=== PATIENT | female | born 1975 | race Hispanic/Latino ===

== ENCOUNTER 2019-01-12 09:42 | Emergency (ER) | payer OTHER ==
[~2019-01-12] VITALS: Ht 162.6 cm; Wt 75.7 kg
--- OUTSIDE RECORDS SUMMARY | 2019-01-12 09:44 | XMS REPORT | Continuity of Care Document ---
Author Author [facility] Interface Address Unknown Phone Unavailable Problems Problem Status Onset Date Classification Date Reported Comments Source Nausea 01/09/2018 Diagnosis 01/09/2018 [facility] Migraine 01/09/2018 Diagnosis 01/09/2018 [facility] Body mass index 25-29 - overweight 12/09/2017 Diagnosis 12/09/2017 [facility] Viral upper respiratory tract infection 12/09/2017 Diagnosis 12/09/2017 [facility] Pain in throat 12/09/2017 Diagnosis 12/09/2017 [facility] Influenza-like symptoms 12/09/2017 Diagnosis 12/09/2017 [facility] Body Mass Index 25-29 - Overweight 12/09/2017 Problem 01/09/2018 [facility] Pain in Throat 12/09/2017 Problem 01/09/2018 [facility] Viral Upper Respiratory Tract Infection 12/09/2017 Problem 01/09/2018 [facility] Influenza-like Symptoms 12/09/2017 Problem 01/09/2018 [facility] Acute sinusitis 12/03/2016 Diagnosis 12/03/2016 [facility] Feeling feverish 12/03/2016 Diagnosis 12/03/2016 [facility] Acute urinary tract infection 02/13/2016 Diagnosis 02/13/2016 [facility] Influenza Due to Influenza a Virus Problem 12/03/2016 [facility] Acute Urinary Tract Infection Problem 12/03/2016 [facility] Medications Medication Details Route Status Patient Instructions Ordering Provider Order Date Source Doxycycline Monohydrate 100 MG Oral Capsule doxycycline monohydrate 100 mg capsule Active [facility] Acetaminophen 325 MG / Hydrocodone Bitartrate 7.5 MG Oral Tablet hydrocodone 7.5 mg-acetaminophen 325 mg tablet Active [facility] Ibuprofen 800 MG Oral Tablet ibuprofen 800 mg tablet Take 1 tablet 3 times a day by oral route for 5 days. Active [facility] Lidocaine Hydrochloride 20 MG/ML Mucous Membrane Topical Solution Lidocaine Viscous 2 % mucosal solution Take 10 mL every 3 hours by oral route as needed. Active [facility] methylprednisolone 4 mg tablets in a dose pack methylprednisolone 4 mg tablets in a dose pack Take PO as directed Active [facility] Promethazine Hydrochloride 25 MG Oral Tablet promethazine 25 mg tablet Active [facility] Ondansetron 8 MG Disintegrating Oral Tablet [Zofran] Zofran ODT [address] 1 tablet every 8 hours by translingual route for 3 days. Active [facility] Medrol (Jad) 4 mg tablets in a dose pack Medrol (Jad) 4 mg tablets in a dose pack Take PO as directed Active [facility] Sulfamethoxazole 800 MG / Trimethoprim 160 MG Oral Tablet [Bactrim] Bactrim DS 800 mg-160 mg tablet Take 1 tablet(s) every 12 hours by oral route as directed for 5 days. Active [facility] Phenazopyridine hydrochloride 200 MG Oral Tablet phenazopyridine 200 mg tablet Take 1 tablet(s) 3 times a day by oral route as needed for urinary pain for 2 days. Active [facility] Amoxicillin 875 MG / Clavulanate 125 MG Oral Tablet [Augmentin] Augmentin 875 mg-125 mg tablet Take 1 tablet every 12 hours by oral route with meals for 7 days. Active [facility] benzonatate 200 MG Oral Capsule benzonatate 200 mg capsule Take 1 capsule 3 times a day by oral route as needed for cough. Active [facility] Chlorpromazine hydrochloride 25 MG Oral Tablet chlorpromazine 25 mg tablet Active [facility] Prednisone 20 MG Oral Tablet prednisone 20 mg tablet Take 2 tablets every day by oral route for 3 days. Active [facility] Allergies, Adverse Reactions, Alerts Substance Category Reaction Severity Reaction type Status Date Reported Comments Source Immunizations Immunization Date Given Site Status Last Updated Comments Source Tdap 08/22/2009 completed [facility] Results Order Name Results Value Reference Range Date Interpretation Comments Source RESULT negative 12/09/2017 [facility] SWAB LOCATION Left and Right tonsillar pillars 12/09/2017 [facility] Influenza A negative 12/09/2017 [facility] Influenza B negative 12/09/2017 [facility] Influenza A negative 12/03/2016 [facility] Influenza B negative 12/03/2016 [facility] RESULT negative 12/03/2016 [facility] SWAB LOCATION Left and Right tonsillar pillars 12/03/2016 [facility] Urinalysis macro (dipstick) panel - Urine COLOR : Gogo 02/13/2016 [facility] Urinalysis macro (dipstick) panel - Urine CLARITY : Cloudy 02/13/2016 [facility] Urinalysis macro (dipstick) panel - Urine LEUKOCYTES : Trace 02/13/2016 [facility] Urinalysis macro (dipstick) panel - Urine NITRITES : Negative 02/13/2016 [facility] Urinalysis macro (dipstick) panel - Urine UROBILINOGEN : Normal 02/13/2016 [facility] Urinalysis macro (dipstick) panel - Urine PROTEIN : Negative 02/13/2016 [facility] Urinalysis macro (dipstick) panel - Urine pH : 5.5 02/13/2016 [facility] Urinalysis macro (dipstick) panel - Urine BLOOD : Large 02/13/2016 [facility] Urinalysis macro (dipstick) panel - Urine SPECIFIC GRAVITY : 1.010 02/13/2016 [facility] Urinalysis macro (dipstick) panel - Urine KETONES : Negative 02/13/2016 [facility] Urinalysis macro (dipstick) panel - Urine BILIRUBIN : Negative 02/13/2016 [facility] Urinalysis macro (dipstick) panel - Urine GLUCOSE Negative 02/13/2016 [facility] Urinalysis macro (dipstick) panel - Urine COMMENTS : pt took azo 02/13/2016 [facility] Vital Signs Vital Sign Value Date Comments Source Diastolic (mm Hg) 72 01/09/2018 [facility] Height 65 01/09/2018 [facility] Systolic (mm Hg) 118 01/09/2018 [facility] Weight 155 01/09/2018 [facility] Diastolic (mm Hg) 74 12/09/2017 [facility] Height 65 12/09/2017 [facility] Systolic (mm Hg) 118 12/09/2017 [facility] Weight 162 12/09/2017 [facility] Diastolic (mm Hg) 80 12/03/2016 [facility] Height 65 12/03/2016 [facility] Systolic (mm Hg) 120 12/03/2016 [facility] Weight 158 12/03/2016 [facility] Diastolic (mm Hg) 68 02/13/2016 [facility] Height 65 02/13/2016 [facility] Systolic (mm Hg) 110 02/13/2016 [facility] Weight 153 02/13/2016 [facility] Encounters Location Location Details Encounter Type Encounter Number Reason For Visit Attending Provider ADM Date DC Date Status Source [place] - [facility] - [id number] Warren EDITOR MANAGING DIRECTOR: [address] [facility], [place] [address], Ph. [id number] Magda Briana 02/13/2016 [facility] [place] [facility] - [id number] Chris Warren, EDITOR MANAGING DIRECTOR-C: [address] [facility], [place] [address], Ph. [id number] Chris Warren 12/03/2016 [facility] [place] [facility] - [id number] Nadia Pitts, EDITOR MANAGING DIRECTOR-C: [address] [facility], [place] [address], Ph. [id number] Nadia Pitts 12/09/2017 [facility] [place] [facility] - [id number] Suleman Burgess, PA-C: [address] [facility], [place] [address], Ph. [id number] Suleman Burgess 01/09/2018 [facility] Procedures Procedure Code Date Perfomer Comments Source
--- OUTSIDE RECORDS SUMMARY | 2019-01-12 09:45 | XMS REPORT | Encounter Summary ---
Author Organization Unknown Address [address] [place] [address] Phone [phone] Reason for Visit Medical Complaint Instructions 1. Acute urinary tract infection urinalysis, dipstick Bactrim DS 800 mg-160 mg tablet phenazopyridine 200 mg tablet culture, urine Discussion Note: None recorded. Patient educational handouts: No information available. Plan of Care Patient Instructions Increase fluid intake. Take med as prescribed.If started to have yeast infection while on antibiotic, may call clinic for diflucan. Wipe front to back and urinate after sexual intercourse.Wear loose cotton underwear. May take cranberry juice for preventative. If symptoms worsen follow with severe back pain, chills, fever, abdominal pain call clinic. Reminders Provider Appointments None recorded. Lab Urinalysis, Dipstick 02/13/2016 [facility] Culture, Urine 02/13/2016 [facility] Referral None recorded. Procedures None recorded. Surgeries None recorded. Imaging None recorded. Medications Name Start Date Bactrim DS 800 mg-160 mg tablet Take 1 tablet(s) every 12 hours by oral route as directed for 5 days. phenazopyridine 200 mg tablet Take 1 tablet(s) 3 times a day by oral route as needed for urinary pain for 2 days. Medications Administered None recorded. Vitals Height Weight BMI Blood Pressure 5 ft 5 in 153 lbs 25.5 110/68 Lab Results Date Name Result Description Value Range Status Urinalysis, Dipstick Color : Gogo Clarity : Cloudy Leukocytes : Trace Nitrites : Negative Urobilinogen : Normal Protein : Negative Ph : 5.5 Blood : Large Specific [place] : 1.010 Ketones : Negative Bilirubin : Negative Glucose Negative Comments : pt took azo Allergies Name Reaction Severity Onset NKDA Problems Name Status Onset Date Source Influenza Due to Influenza a Virus Active Encounter Acute Urinary Tract Infection Active Encounter Procedures None recorded. Vaccine List None recorded. Social History Smoking Status Never Smoker Past Encounters 02/13/2016 Acute Urinary Tract Infection Magda Warren, COMMUNITY ASSOCIATE: [address] [place] [address], Ph. History of Present Illness [id number] Reported By: Patient HPI: Location: urethra. Quality: burning. Severity: worsening. Duration: started 2 days. Onset/Timing: worse. Context: not sexually active, no known exposure to STD, no prior history of STDs. Modifying factors OTC medication. Associated Symptoms: no fever/chills, no flank pain, no jaundice, no blood in the urine, no pain during urination, no vaginal discharge, no blisters on genitals, no rash on genitals, burning sensation during urination, urgency, feeling of incomplete emptying of bladder Review of Systems Basic Reported By: Patient Constitutional: Constitutional: no fever Eyes: Eyes: no eye complaints Usqi-Yspc-Mctfs-Throat: Ears: no ear complaints. Nose: no nose/sinus problems. Mouth/Throat: no sore throat, no bleeding gums, no mouth complaints, no teeth problems Cardiovascular: Cardiovascular: no chest pain, no shortness of breath, no known heart murmur Respiratory: Respiratory: no cough, no wheezing, no shortness of breath Gastrointestinal: Gastrointestinal: no abdominal pain, no vomiting / diarrhea Genitourinary: Genitourinary: no discharge, dysuria, urinary urgency Musculoskeletal: Musculoskeletal: no muscle aches, no muscle weakness, no arthralgias/joint pain, no back pain Skin: Skin: no abnormal / changing mole, no jaundice, no rashes Neurologic: Neurologic: no loss of consciousness, no weakness, no numbness, no seizures, no dizziness, no headaches Physical Exam Adult Basic, Adult Female Complete Constitutional: General Appearance: healthy-appearing, well-nourished, well-developed. Level of Distress: NAD. Ambulation: ambulating normally Psychiatric: Mental Status: active and alert. Orientation: to time, to place, to person Eyes: Lids and Conjunctivae: non-injected, no discharge, no pallor. Pupils: PERRLA. Corneas: grossly intact. EOM: EOMI. Lens: clear. Sclerae: non-icteric. Vision: acuity grossly intact Gkx-Uavr-Gujpe-Throat: Ears: no lesions on external ear, no outer ear tenderness, EACs clear, TMs clear. Hearing: no hearing loss. Nose: no lesions on external nose, nares patent, no septal deviation, nasal passages clear, no sinus tenderness, no nasal discharge. Lips, Teeth, and Gums: no mouth or lip ulcers, no bleeding gums, normal dentition. Oropharynx: moist mucous membranes, no erythema, no exudates, tonsils not enlarged Neck: Neck: supple, trachea midline, no masses, FROM. Lymph Nodes: no cervical LAD, no supraclavicular LAD. Thyroid: no enlargement, non-tender, no nodules Lungs: Respiratory effort: no dyspnea, no tachypnea, no use of accessory muscles, no intercostal retractions. Auscultation: breath sounds normal Cardiovascular: Heart Auscultation: RRR, no murmurs. Neck vessels: no carotid bruits Abdomen: Bowel Sounds: normal. Inspection and Palpation: soft, non-distended, no guarding, no rebound tenderness, no masses, no CVA tenderness, suprapubic tenderness. Liver: non-tender, no hepatomegaly. Spleen: non-tender, no splenomegaly. Hernia: none palpable
--- OUTSIDE RECORDS SUMMARY | 2019-01-12 09:45 | XMS REPORT | Encounter Summary ---
Author Organization Unknown Address [address] [place] [address] Phone [phone] Care Team Providers Care Machine Boss Name Role Phone Edmund Patterson OD 3 [phone] Reason for Visit Medical Complaint Instructions 1. Viral upper respiratory tract infection Medrol (Jad) 4 mg tablets in a dose pack 2. Pain in throat sore throat: care instructions Lidocaine Viscous 2 % mucosal solution rapid strep group A, throat 3. Influenza-like symptoms rapid flu (A+B) 4. Body mass index 25-29 - overweight body mass index: care instructions Discussion Note Pt is in NAD; Verbalizes understanding of all instructions with no questions at this time. Plan of Care Patient Instructions Stop Advil cold and sinus. Gargle and spit viscous lidocaine as needed for sore throat as directed. Take fluticasone as needed for congestion. Nunn one spray in each nostril twice a day. Take a warm, steamy shower, blow your nose thereafter, and spray in each nostril. Tilt your head up for about 10 seconds and breath through your mouth. Do not sniff or snort the medication in or else the medication will go to your throat and not be absorbed appropriately. Take Tykenol (acetaminophen) as per package insert for pain/fever/headache. Take steroid taper as directed with food. Proper hydration and rest. Return to work/school if free of fever for 24-hrs. Do not share any utensils/cups, no kissing, recommend hand washing after coughing/sneezing/blowing nose and cover face when you do so. Take medications as prescribed. Return to clinic or follow up with your PCP within 2-3 days if symptoms worsen as discussed. Recommend follow a low sodium/fat/carb diet and exercise 30-45 mins/d 3-4 days a week once symptoms resolve. Reminders Provider Appointments None recorded. Lab Rapid Flu (A+B) 12/09/2017 [facility] Rapid Strep Group a, Throat 12/09/2017 [facility] Referral None recorded. Procedures None recorded. Surgeries None recorded. Imaging None recorded. Medications Name Start Date Lidocaine Viscous 2 % mucosal solution Take 10 mL every 3 hours by oral route as needed. Medrol (Jad) 4 mg tablets in a dose pack Take PO as directed Medications Administered None recorded. Vitals Height Weight BMI Blood Pressure 5 ft 5 in 162 lbs 27 kg/m2 118/74 mm[Hg] Lab Results Date Name Specimen Result Interpretation Description Value Range Status Address Rapid Strep Group a, Throat Result negative [facility]: [address] [place] [address] Swab Location Left and Right tonsillar pillars [facility]: [address] [place] [address] Rapid Flu (A+B) Influenza a negative [facility]: [address] [place] [address] Influenza B negative [facility]: [address] [place] [address] Allergies Code Code System Name Reaction Severity Status Onset NKDA Problems Name Status Onset Date Source Body Mass Index 25-29 - Overweight Active 12/09/2017 Pain in Throat Active 12/09/2017 Viral Upper Respiratory Tract Infection Active 12/09/2017 Influenza-like Symptoms Active 12/09/2017 Procedures None recorded. Vaccine List Vaccine Type Tdap 08/22/2009 Social History Smoking Status Never Smoker Past Encounters 12/09/2017 Viral Upper Respiratory Tract Infection; Pain in Throat; Influenza-like Symptoms; Body Mass Index 25-29 - Overweight Nadia Pitts [facility]-C: [address] [place] [address], Ph. History of Present Illness [id number] Reported By: Patient HPI: Quality: symptoms worse during the day. Duration: 2 days. Context: no ill contacts, no tick/insect bites, no recent travel, no new medications. Associated Symptoms: no fever/chills, no muscle aches, no rash, no lethargy, headache, cold symptoms, nasal passage blockage (stuffiness), nasal discharge; sinus pressure, B/L ear pain and popping sensation and sore throat. Modifying Factors nothing gives relief Review of Systems Basic Reported By: Patient Constitutional: Constitutional: no fever Eyes: Eyes: no eye complaints Xtpb-Mlbj-Vueod-Throat: Ears: ear pain; B/L ear pain popping sensation. Nose: frequent nosebleeds, nose/sinus problems. Mouth/Throat: no bleeding gums, no mouth complaints, no teeth problems, sore throat Cardiovascular: Cardiovascular: no chest pain, no shortness of breath, no known heart murmur Respiratory: Respiratory: no cough, no wheezing, no shortness of breath Gastrointestinal: Gastrointestinal: no abdominal pain, no vomiting / diarrhea Genitourinary: Genitourinary: no urinary complaints, no discharge Musculoskeletal: Musculoskeletal: no muscle aches, no muscle weakness, no arthralgias/joint pain, no back pain Skin: Skin: no abnormal / changing mole, no jaundice, no rashes Neurologic: Neurologic: no loss of consciousness, no weakness, no numbness, no seizures, no dizziness, no headaches, headache Physical Exam Adult Basic, Adult Female Complete, Expanded Neuro Exam (headache) Reported By: Patient Constitutional: General Appearance: healthy-appearing, well-nourished, well-developed, overweight. Level of Distress: NAD. Ambulation: ambulating normally Psychiatric: Mental Status: active and alert. Orientation: to time, to place, to person Eyes: Lids and Conjunctivae: non-injected, no discharge, no pallor. Pupils: PERRLA. Corneas: grossly intact. EOM: EOMI, pupil normal size, pupil reactive to light and dark. Lens: clear. Sclerae: non-icteric. Vision: acuity grossly intact; peripheral vision grossly intact Jjs-Xexc-Iidwy-Throat: Ears: no lesions on external ear, no outer ear tenderness, EACs clear, TMs clear. Hearing: no hearing loss. Nose: no lesions on external nose, nares patent, no septal deviation, nasal passages clear, no sinus tenderness, post nasal drip. Lips, Teeth, and Gums: no mouth or lip ulcers, no bleeding gums, normal dentition. Oropharynx: moist mucous membranes, no erythema, no exudates, tonsils not enlarged Neck: Neck: supple. Lymph Nodes: no cervical LAD Lungs: Respiratory effort: no dyspnea, no tachypnea, no use of accessory muscles, no intercostal retractions. Auscultation: breath sounds normal Cardiovascular: Heart Auscultation: RRR, no murmurs Neurologic: Gait and Station: normal gait, normal station. Cranial Nerves: grossly intact, normal sensation. Sensation: grossly intact. Reflexes: DTRs 2+ bilaterally throughout. Coordination and Cerebellum: [id number] intact, no tremor
--- OUTSIDE RECORDS SUMMARY | 2019-01-12 09:45 | XMS REPORT | Encounter Summary ---
Author Organization Unknown Address [address] [place] [address] Phone [phone] Reason for Visit Medical Complaint Instructions 1. Acute sinusitis sinusitis: care instructions Augmentin 875 mg-125 mg tablet prednisone 20 mg tablet benzonatate 200 mg capsule 2. Pain in throat rapid strep group A, throat 3. Feeling feverish rapid flu (A+B) Discussion Note: None recorded. Plan of Care Patient Instructions consider a trial of flonase and zyrtec if you havent already. may start on antibiotics in 4-5 days if not better. follow up pcp Reminders Provider Appointments None recorded. Lab Rapid Strep Group a, Throat 12/03/2016 [facility] Rapid Flu (A+B) 12/03/2016 [facility] Referral None recorded. Procedures None recorded. Surgeries None recorded. Imaging None recorded. Medications Name Start Date Augmentin 875 mg-125 mg tablet Take 1 tablet every 12 hours by oral route with meals for 7 days. benzonatate 200 mg capsule Take 1 capsule 3 times a day by oral route as needed for cough. chlorpromazine 25 mg tablet prednisone 20 mg tablet Take 2 tablets every day by oral route for 3 days. Medications Administered None recorded. Vitals Height Weight BMI Blood Pressure 5 ft 5 in 158 lbs 26.3 120/80 Lab Results Date Name Specimen Result Interpretation Description Value Range Status Address Rapid Flu (A+B) Influenza a negative [facility]: [address] [place] [address] Influenza B negative [facility]: [address] [place] [address] Rapid Strep Group a, Throat Result negative [facility]: [address] [place] [address] Swab Location Left and Right tonsillar pillars [facility]: [address] [place] [address] Allergies Code Code System Name Reaction Severity Onset NKDA Problems Name Status Onset Date Source Influenza Due to Influenza a Virus Active Encounter Acute Urinary Tract Infection Active Encounter Procedures None recorded. Vaccine List None recorded. Social History Smoking Status Never Smoker Past Encounters 12/03/2016 Acute Sinusitis; Pain in Throat; Feeling Feverish [facility]: [address] [facility], [place] [address], Ph. History of Present Illness [id number] Reported By: Patient HPI: Location: head/sinuses, throat. Quality: productive cough, sore throat, colored phlegm, nasal/sinus congestion. Duration: 3days. Severity: moderate. Onset/Timing: gradual. Context: no sick contacts, no foreign travel, non-smoker. Modifying factors: OTC medication. Associated Symptoms: no shortness of breath, no wheezing, no change in number of pillows needed to sleep at night, no sweats, no significant weight gain, no significant weight loss, no morning cough, no sore throat, no vomiting, no diarrhea, no rash, no nausea, no fever, no headache, green sputum, muscle aches Review of Systems:ROS as noted in the HPI Review of Systems Basic Reported By: Patient Physical Exam Adult Basic, Adult Female Complete Reported By: Patient Constitutional: General Appearance: healthy-appearing, well-nourished, well-developed. Level of Distress: NAD. Ambulation: ambulating normally Psychiatric: Mental Status: active and alert Eyes: Lids and Conjunctivae: non-injected, no discharge Fks-Gtha-Xkqdu-Throat: Ears: no lesions on external ear, no outer ear tenderness, EACs clear, TMs clear. Hearing: no hearing loss. Nose: no lesions on external nose, sinus tenderness, nasal discharge--purulent; congestion. Lips, Teeth, and Gums: no mouth or lip ulcers. Oropharynx: moist mucous membranes, no erythema, no exudates, tonsils not enlarged Neck: Neck: trachea midline. Lymph Nodes: no cervical LAD Lungs: Respiratory effort: no dyspnea, no tachypnea, no use of accessory muscles, no intercostal retractions. Auscultation: breath sounds normal Cardiovascular: Heart Auscultation: RRR, no murmurs
--- OUTSIDE RECORDS SUMMARY | 2019-01-12 09:45 | XMS REPORT | Encounter Summary ---
Author Organization Unknown Address [address] [place] [id number] Phone [phone] Care Team Providers Care Job Lithographer Name Role Phone Edmund Patterson OD 3 [phone] Reason for Visit Medical Complaint Instructions 1. Migraine Zofran ODT 8 mg disintegrating tablet ibuprofen 800 mg tablet 2. Nausea Discussion Note: None recorded. Patient educational handouts: No information available. Plan of Care Reminders Provider Appointments None recorded. Lab None recorded. Referral None recorded. Procedures None recorded. Surgeries None recorded. Imaging None recorded. Medications Name Start Date doxycycline monohydrate 100 mg capsule hydrocodone 7.5 mg-acetaminophen 325 mg tablet ibuprofen 800 mg tablet Take 1 tablet 3 times a day by oral route for 5 days. Lidocaine Viscous 2 % mucosal solution Take 10 mL every 3 hours by oral route as needed. methylprednisolone 4 mg tablets in a dose pack Take PO as directed promethazine 25 mg tablet Zofran ODT [address] 1 tablet every 8 hours by translingual route for 3 days. Medications Administered None recorded. Vitals Height Weight BMI Blood Pressure 5 ft 5 in 155 lbs 25.8 kg/m2 118/72 mm[Hg] Lab Results None recorded. Allergies Code Code System Name Reaction Severity Status Onset NKDA Problems Name Status Onset Date Source Body Mass Index 25-29 - Overweight Active 12/09/2017 Pain in Throat Active 12/09/2017 Viral Upper Respiratory Tract Infection Active 12/09/2017 Influenza-like Symptoms Active 12/09/2017 Procedures None recorded. Vaccine List Vaccine Type Tdap 08/22/2009 Social History Smoking Status Never Smoker Past Encounters 01/09/2018 Migraine; Nausea Suleman Burgess PA-C: [id number] [place] [address], Ph. History of Present Illness Headache Reported By: Patient HPI: Location: facial, unilateral, frontal. Quality: not the worst headache ever, similar to previous headaches, throbbing. Severity: moderate. Duration: constant. Onset/Timing: worse, abrupt onset. Context: not related to trauma. MIDAS: Migraine Disability Assessment 1. On how many days in the last 3 months did you miss work or school because of your headaches? 0, 2. How many days in the last 3 months was your productivity at work or school reduced by half or more because of your headaches? 0 (Do not include days counted in question 1), 3. On how many days in the last 3 months did you not do household work because of headaches? 0, 4. How many days in the last 3 months was your productivity in household work reduced by half or more because of your headaches? 0 (Do not include days counted in Question 3.), 5. On how many days in the last 3 months did you miss family, social or leisure activities because of your headaches? 0, Score (add 1-5): 6 to 10 - Grade 2 - Mild or infrequent disability, A. On how many days in the last three months did you have a headache? 0, B. On a scale of 0 - 10, on average how painful were these headaches (where 0=no pain at all and 10=pain as bad as it can be)? 0. Modifying factors: OTC medication. Associated Symptoms: no fever/chills, no muscle aches, no vomiting, no sensitivity to light, tearing/watery eyes, no confusion, no slurred speech, no preceeding aura, no double vision, normal feeling/sensation, no motor paralysis, no dizziness, no sleep disturbances, no nosebleeds, no hoarseness, no sore throat, no hearing loss, headache, nausea Review of Systems:ROS as noted in the HPI Review of Systems Basic Reported By: Patient Physical Exam Adult Basic Reported By: Patient Constitutional: General Appearance: healthy-appearing, well-nourished, well-developed. Level of Distress: NAD. Ambulation: ambulating normally Psychiatric: Mental Status: active and alert. Orientation: to time, to place, to person Eyes: Lids and Conjunctivae: non-injected, no discharge, no pallor. Pupils: PERRLA. Corneas: grossly intact. EOM: EOMI. Lens: clear. Sclerae: non-icteric. Vision: acuity grossly intact [id number]-[id number]-Throat: Ears: no lesions on external ear, no [...] no masses, FROM. Lymph Nodes: no cervical LAD. Thyroid: no enlargement, non-tender, no nodules Lungs: Respiratory effort: no dyspnea, no tachypnea, no use of accessory muscles, no intercostal retractions. Auscultation: breath sounds normal Cardiovascular: Heart Auscultation: RRR, no murmurs Musculoskeletal:: Joints, Bones, and Muscles: normal movement of all extremities Neurologic: Gait and Station: normal gait, normal station. Cranial Nerves: grossly intact. Sensation: grossly intact Skin: Inspection and palpation: no rash, no lesions Back: Thoracolumbar Appearance: normal curvature
[2019-01-12] MEDS ORDERED: KETOROLAC TROMETHAMINE 30 MG/ML VIAL IV NR (10:03)
[2019-01-12] MEDS ORDERED: ONDANSETRON HCL INJ 2MG/ML 2ML 2 MG/ML VIAL IV NR (10:03)
[2019-01-12] MEDS ORDERED: SODIUM CHLORIDE 0.9% 1000ML 1,000 ML IV STA (10:03)
[2019-01-12 10:26] LABS: BASOPHILS # (AUTO) 0.1 (0.0-0.1); BASOPHILS % 0.5 % (0.0-1.0); EOSINOPHILS # (AUTO) 0.1 (0.0-0.4); EOSINOPHILS % 0.4 % (0.0-6.0); HEMATOCRIT 39.1 % (34.2-44.1); HEMOGLOBIN 13.3 g/dL (12.0-16.0); LYMPHOCYTES % 17.7 % (18.0-39.1); MEAN CORPUSCULAR HEMOGLOBIN 28.1 pg (28-32); MEAN CORPUSCULAR VOLUME 82.7 fL (81-99); MONOCYTES # (AUTO) 0.4 (0.2-0.8); MONOCYTES % 3.1 % (4.4-11.3); NEUTROPHILS # (AUTO) 8.8 (2.1-6.9); NEUTROPHILS % 77.9 % (38.7-80.0); PLATELET COUNT 376 x10e3/uL (140-360); RED BLOOD COUNT 4.73 x10e6/uL (3.6-5.1); RED CELL DISTRIBUTION WIDTH 15.3 % (11.7-14.4)
[2019-01-12 10:35] LABS: BILIRUBIN,URINE NEGATIVE (NEGATIVE); CLARITY,URINE CLEAR (CLEAR); COLOR,URINE YELLOW (YELLOW); KETONES,URINE NEGATIVE (NEGATIVE); LEUKOCYTE ESTERASE ,URINE NEGATIVE (NEGATIVE); NITRITE,URINE NEGATIVE (NEGATIVE); PROTEIN,URINE DIPSTICK NEGATIVE (NEGATIVE); URINE UROBILINOGEN 0.2 mg/dL (0.2 - 1)
[2019-01-12 10:45] LABS: ALANINE AMINOTRANSFERASE 51 IU/L (0-55); ALBUMIN 3.9 g/dL (3.5-5.0); ALBUMIN/GLOBULIN RATIO 1.3 (0.8-2.0); ALKALINE PHOSPHATASE 62 IU/L (40-150); ANION GAP 11.2 mmol/L (8-16); BLOOD UREA NITROGEN 9 mg/dL (7-26); BUN/CREATININE RATIO 14 (6-25); CALCIUM 9.6 mg/dL (8.4-10.2); CARBON DIOXIDE 26 mmol/L (22-29); CHLORIDE 105 mmol/L (98-107); CREATININE, SERUM 0.63 mg/dL (0.57-1.11); EST GLOMERULAR FILTRATION RATE > 60 ML/MIN (60-); GLUCOSE 127 mg/dL (74-118); POTASSIUM 4.2 mmol/L (3.5-5.1); SODIUM 138 mmol/L (136-145)
[2019-01-12 10:58] LABS: BACTERIA,URINE FEW /HPF; EPITHELIAL CELLS,URINE MODERATE /LPF
--- NOTE | 2019-01-12 11:37 | Diagnostic Imaging Report ---
EXAMINATION: CT of the abdomen and pelvis without contrast. TECHNIQUE: Spiral CT images of the abdomen and pelvis were performed from the lung bases to the lesser trochanters. No intravenous contrast was given per renal stone protocol. Coronal and sagittal reformatted images were obtained. COMPARISON: None. CLINICAL HISTORY:Bilateral flank pain x2 weeks DISCUSSION: ABSENCE OF INTRAVENOUS CONTRAST DECREASES SENSITIVITY FOR DETECTION OF FOCAL LESIONS AND VASCULAR PATHOLOGY. ABDOMEN/PELVIS: LOWER THORAX: Unremarkable. HEPATOBILIARY:Hepatic parenchyma is diffusely hypoattenuating compatible with steatosis with regional sparing along the gallbladder fossa. No intrahepatic biliary dilatation. Gallbladder is unremarkable. SPLEEN: No splenomegaly. PANCREAS: No focal masses or ductal dilatation. ADRENALS: No adrenal nodules. KIDNEYS/URETERS: No renal or ureteral calculi. No hydronephrosis. No gross mass lesion. PELVIC ORGANS/BLADDER: The urinary bladder is unremarkable. The uterus is enlarged and neutral in position with an intrauterine device in place, displaced to the right.. Left ovarian dominant follicle. No adnexal mass. PERITONEUM/RETROPERITONEUM: No ascites. No pneumoperitoneum. LYMPH NODES: No pelvic sidewall, retroperitoneal, or mesenteric lymphadenopathy. VESSELS: Limited evaluation without intravenous contrast. The abdominal aorta is nonaneurysmal. GI TRACT: The large bowel shows no evidence of distention or wall thickening. Scattered sigmoid diverticula without adjacent inflammatory change. The appendix is normal. No small bowel dilatation to suggest obstruction. BONES AND SOFT TISSUES: Probable postsurgical changes of the anterior abdominal wall subcutaneous fat. Very small fat-containing umbilical hernia. No osseous destructive lesions. IMPRESSION: No acute intra-abdominal or pelvic CT abnormalities. No urolithiasis. Incidental note of hepatomegaly with hepatic steatosis. Sigmoid diverticulosis without findings of diverticulitis. Bulky uterus with rightward displacement of intrauterine device, likely secondary to leiomyoma(s). Nonemergent transvaginal pelvic ultrasound may be of benefit for further evaluation. Signed by: Dr. Chance Ayala M.D. on 01/12/2019 11:33 AM
== END 2019-01-12 12:34 | disposition home or self-care (01) ==
LOC: ER 09:42
DX: R30.0 Dysuria (principal); R11.0 Nausea; M54.5 Low back pain; K57.31 Diverticulosis of large intestine without perforation or abscess with bleeding
CPT/HCPCS: 36415; 74176; 80053; 81001; 84702; 85025; 99284; J1885; J2405; J7030

== ENCOUNTER → 2019-05-16 | Outpatient (CLI) | payer OTHER ==
[~2019-05-16] MED LIST: TYLENOL WITH C1 EACH PO
--- NOTE | 2019-05-16 13:28 | Diagnostic Imaging Report ---
EXAM: US ABDOMEN COMPLETE DATE: 05/16/2019 11:58 AM INDICATION: Abdominal pain COMPARISON: CT abdomen and pelvis of 01/12/2019 TECHNIQUE: Transverse and longitudinal carter scale and color doppler sonographic images of the upper abdomen were obtained. FINDINGS: There is no evidence of fluid or masses seen in the area of clinical concern in the right lower quadrant. LIVER 17.5 cm in the right midclavicular line. Increased echogenicity of the liver with normal contour, no masses. SPLEEN 8.8 cm in maximum diameter. Normal echogenicity, no masses. GALLBLADDER No gallbladder wall thickening, distension, stone, or pericholecystic fluid. Negative reported sonographic Falk's sign. The gallbladder wall measures 2 mm. BILE DUCTS No intra nor extra-hepatic biliary dilation. Common bile duct measures 2 mm PANCREAS: Visualized portions are normal. RIGHT KIDNEY: 12.2 cm Echogenicity: Normal Collecting System: No hydronephrosis Stones: None Cyst/Mass: None LEFT KIDNEY: 12.3 cm Echogenicity: Normal Collecting System: No hydronephrosis Stones: None Cyst/Mass: None VESSELS: Aorta: Visualized portions are within normal size limits Inferior Vena Cava: Visualized portions are normal Main Portal Vein: 0.9 cm, normal size with hepatopetal flow. FREE FLUID: None IMPRESSION: Hepatic steatosis and mild hepatomegaly. No cholelithiasis or sonographic evidence of cholecystitis. Signed by: Jeff Mckenna MD on 05/16/2019 1:24 PM
--- NOTE | 2019-05-16 19:44 | Diagnostic Imaging Report ---
HEPATOBILIARY SCAN INDICATION: Severe abdominal pain x 3 days with nausea/vomiting Report: Following the administration of 6 mCi of Tc-99m mebrofenin, dynamic images of the abdomen in the anterior projection were obtained through 60 minutes. Sincalide 1.4 micrograms was administered by intravenous infusion over 30 minutes with additional imaging. The gallbladder had been incorrectly identified on this initial portion of the study so the patient was asked to return. An additional 6 mCi of Tc-99m mebrofenin was administered 4 hours later with additional imaging through 1 hour. Perfusion of the liver is normal. Extraction of tracer from the blood pool by the liver parenchyma is normal. Tracer appears promptly with in the biliary tract. Tracer is seen in the small bowel by 20 minutes post injection of the radiotracer. The gallbladder does not fill during the initial 60-minute dynamic sequence. When the study was repeated, the gallbladder again did not fill during the 60 minutes of imaging. Time from initiation of the study to completion of the second 60 minutes with the additional dose of mebrofenin was approximately 5 hours. Impression: Absence of filling of the gallbladder through a total of 5 hours with two doses of the radiopharmaceutical supports the clinical diagnosis of chronic and/or acute cholecystitis. Signed by: Dr. Niesha Willams M.D. on 05/16/2019 7:41 PM
== END ==
LOC: US 11:50
PROVIDERS: ATTEND Family Medicine
DX: R10.9 Unspecified abdominal pain (principal); R11.2 Nausea with vomiting, unspecified; R16.0 Hepatomegaly, not elsewhere classified; K76.0 Fatty (change of) liver, not elsewhere classified
CPT/HCPCS: 76700; 78227; A9537

== ENCOUNTER 2019-05-17 16:46 | Observation (INO) | payer OTHER ==
[~2019-05-17] VITALS: Ht 162.6 cm; Wt 72.8 kg
--- OUTSIDE RECORDS SUMMARY | 2019-05-17 16:52 | XMS REPORT ---
Author [facility] Address Unknown Phone Unavailable Care Team Providers Care Supervisor Riveting Name Role Phone EDELMIRA FRANCO Unavailable Unavailable Tina QUINTANILLA Unavailable Unavailable Payers Payer Name Policy Type Policy Number Effective Date Expiration Date Problems This patient has no known problems. Allergies, Adverse Reactions, Alerts Allergy Name Allergy Type Status Severity Reaction(s) Onset Date Inactive Date Treating Clinician Comments No Known Allergies DA Active U 2019-02-13 00:00:00 No Known Contrast Allergies DA Active U 2006-01-26 00:00:00 No Known Drug Allergies DA Active U 2006-01-26 00:00:00 No Known Food Allergies DA Active U 2006-01-26 00:00:00 No Known Other Allergies DA Active U 2006-01-26 00:00:00 Medications This patient has no known medications. Results Test Description Test Time Test Comments Text Results Atomic Results Result Comments HEPTOBILIARY W PHARM 2019-05-16 19:29:00 [place] [address] Patient Name: BETTY BRIZUELA MR #: [id number] : 1975 Age/Sex: 44/F Req #: [id number] Adm Physician: Ordered by: JOAN FIERRO, EDELMIRA Cartagnea MD Report #: [id number] Location: Room/Bed: Procedure: [id number] NM/HEPTOBILIARY W PHARM Exam Date: 05/16/19 Exam Time: 1315 REPORT STATUS: Signed HEPATOBILIARY SCAN INDICATION: Severe abdominal pain x 3 days with nausea/vomiting Report: Following the administration of 6 mCi of Tc-99m mebrofenin, dynamic images of the abdomen in the anterior projection were obtained through 60 minutes. Sincalide 1.4 micrograms was administered by intravenous infusion over 30 minutes with additional imaging. The gallbladder had been incorrectly identified on this initial portion of the study so the patient was asked to return. An additional 6 mCi of Tc-99m mebrofenin was administered 4 hours later with additional imaging through 1 hour. Perfusion of the liver is normal. Extraction of tracer from the blood pool by the liver parenchyma is normal. Tracer appears promptly with in the biliary tract. Tracer is seen in the small bowel by 20 minutes post injection of the radiotracer. The gallbladder does not fill during the initial 60-minute dynamic sequence. When the study was repeated, the gallbladder again did not fill during the 60 minutes of imaging. Time from i nitiation of the study to completion of the second 60 minutes with the additional dose of mebrofenin was approximately 5 hours. Impression: Absence of filling of the gallbladder through a total of 5 hours with two doses of the radiopharmaceutical supports the clinical diagnosis of chronic and/or acute cholecystitis. Signed by: Dr. Delvin Willams M.D. on 05/16/2019 7:41 PM Dictated By: DELVIN WILLAMS MD 40 Transcribed By: SEAN on 05/16/191940 COPY TO: EDELMIRA FRANCO ABDOMEN COMPLETE 2019-05-16 13:22:00 [place] [address] Patient Name: BETTY BRIZUELA MR #: [id number] : 1975 Age/Sex: 44/F Req #: [id number] Adm Physician: Ordered by: EDELMIRA FRANCO MD, MD Report #: [id number] Location: Room/Bed: Procedure: [id number] US/US ABDOMEN COMPLETE Exam Date: 05/16/19 Exam Time: 1241 REPORT STATUS: Signed EXAM: US ABDOMEN COMPLETE DATE: 05/16/2019 11:58 AM INDICATION: Abdominal pain COMPARISON: CT abdomen and pelvis of 01/12/2019 TECHNIQUE: Transverse and longitudinal carter scale and color doppler sonographic images of the upper abdomen were obtained. FINDINGS: There is no evidence of fluid or masses seen in the area of clinical concern in the right lower quadrant. LIVER 17.5 cm in the right midclavicular line. Inc reased echogenicity of the liver with normal contour, no masses. SPLEEN 8.8 cm in maximum diameter. Normal echogenicity, no masses. GALLBLADDER No gallbladder wall thickening, distension, stone, or pericholecystic fluid. Negative reported sonographic Falk's sign. The gallbladder wall measures 2 mm. BILE DUCTS No intra nor extra-hepatic biliary dilation. Common bile duct measures 2 mm PANCREAS: Visualized portions are normal. RIGHT KIDNEY: 12.2 cm Echogenicity: Normal Collecting System: No hydronephrosis Stones: None Cyst/Mass: None LEFT KIDNEY: 12.3 cm Echogenicity: Normal Collecting System: No hydronephrosis Stones: None Cyst/Mass: None VESSELS: Aorta: Visualized portions are within normal size limits Inferior Vena Cava: Visualized portions are normal Main Portal Vein: 0.9 cm, normal size with hepatopetal flow. FREE FLUID: None IMPRESSION: Hepatic steatosis and mild hepatomegaly. No cholelithiasis or sonographic evidence of cholecystitis. Signed by: Jennifer Benjamin MD on 05/16/2019 1:24 PM Dictated By: JENNIFER BENJAMIN MD 1328 Transcribed By: SEAN on 05/16/19 1324 COPY TO: EDELMIRA FRANCO DEVICE 2019-02-26 14:43:00 RUN DATE: 02/28/19 [facility] PAGE 1 RUN TIME: 1801 Specimen Inquiry RUN USER: INTERFACE PATIENT: BETTY BRIZUELA LOC: [facility] U #: [id number] AGE/SX: 43/F ROOM: [facility] RE02/20/19REG DR: Sandie Chaudhari MD : [birth year] BED: A DIS: 02/21/19 STATUS: DIS Aneesh TLOC: SPEC #: [id number] RECD: 02/20/19 STATUS: IA RERaine #: [id number] ANDREZ: 02/20/19- SUBM DR: Sandie Chaudhari MD ENTERED: 02/21/19 SP TYPE: DEVICE OTHR DR: ORDERED: LEVEL I/2 CODES: [id number] - UTERUS, NOS PROCEDURES: LEVEL I (Incomplete) TISSUES: INTRAUTERINE DEVICE - IUD UTERUS, NOS - UTERUS, CERVIX AND BILATERAL FALLOPIAN TUBES CLINICAL HISTORY 43 year old, fibroids (kr) FINAL DIAGNOSIS Designated "intrauterine device", removal: - intrauterine device identified (gross identification only) Uterus, cervix, bilateral fallopian tubes, hysterectomy and bilateral salpingectomy: - cervix - no pathologic alterations - endometrium - small single focus of complex hyperplasia with cytologic atypia, no carcinoma identified - myometrium - leiomyomas, foci of adenomyosis - uterine serosa - no pathologic alterations - bilateral fallopian tubes - no pathologic alterations Tissue code 1 CPT code(s): 92800, 42573 pkg/wpd 02/26/19 pkg/wpd 02/28/19 GROSS DESCRIPTION ANATOMIC SOURCE OF TISSUE (per Requisition): 1. Intrauterine device 2. Uterus, cervix, bilateral fallopian tubes Each specimen is labeled with the patient's name and medical record number. Specimen #1 is designated "intrauterine device" and consists of a 3.3 x 3.0 x 0.4 cm white plastic T-shaped device, which is consistent with an intrauterine device. No sections are submitted. Gross diagnosis only. CONTINUED ON NEXT PAGE RUN DATE: 02/28/19 [facility] PAGE 2 RUN TIME: 1801 Specimen Inquiry RUN USER: INTERFACE SPEC #: [id number] PATIENT: BETTY BRIZUELA #[id number] (Continued) GROSS DESCRIPTION (Continued) Specimen #2 is designated "uterus, cervix, bilateral fallopian tubes" and consists of 275 gm, 11.5 x 10.5 x 8.5 cm intact uterus with an attached cervix and fimbriated fallopian tubes (right 7.0 cm in length and left 7.0 cm in length). The uterine serosa is adkins-pink, hyperemic and nodular. The 4 cm ectocervix displays an eccentrically located 1.0 cm slit-like os. The endometrium is adkins-red, hemorrhagic, and shaggy with a wall thickness measuring up to 0.2 cm. The myometrium is trabeculated with a wall thickness measuring up to 4.0 cm. There are multiple well-circumscribed nodules, 0.6 to 4.5 cm. The cut surfaces are adkins and whorled. There are no areas of hemorrhage or necrosis. The fallopian tubes are pink-purple and hyperemic. The lumens are pinpoint. Section code: A1 - cervix, A2 - anterior endomyometrium, A3 - posterior endomyometrium, A4 - human resources hr representative sections of large nodule, A5 - additional section of nodule and human resources hr representative section of right fallopian tube, A6 - additional nodules and human resources hr representative sections of left fallopian tube, RE1 through RE4 - remainder of endometrium. kelsy/jason 02/21/19 @ 1215 MICROSCOPIC DESCRIPTION The cervix has no pathologic alterations. The endometrium is composed of haphazardly spaced glands. Focal crowding of architecturally complex glands is identified. The endometrial stroma has an extensive decidualized appearance. The entire endometrium is submitted for histologic evaluation. No adenocarcinoma is identified in one small area (1.5 mm in dimension). The myometrium contains numerous leiomyomas without atypia and foci of adenomyosis. The uterine serosa is unremarkable. The bilateral fallopian tubes have intact architecture and are lined by serous epithelium without cytologic atypia. adam/karen 02/26/19 / adam/karen 02/28/19 Signed Khadra Brink 02/26/19 1443 END OF REPORT UA RFLX MICR CULT IF INDICATED 2019-02-21 17:27:00 UA COLOR (test code=COLU) STRAW YELLOW UA APPEARANCE (test code=APPU) CLEAR CLEAR UA GLUCOSE DIPSTICK (test code=DGLUU) NEGATIVE NEG UA BILIRUBIN DIPSTICK (test code=BILU) NEGATIVE NEG UA KETONE DIPSTICK (test code=KETU) NEGATIVE NEG UA SPECIFIC GRAVITY (test code=SGU) 1.003 1.001-1.035 UA BLOOD DIPSTICK (test code=SAMANTHA) 2+ NEG UA PH DIPSTICK (test code=PRASHANTH) 7.0 5-9 UA PROTEIN DIPSTICK (test code=PROU) NEGATIVE NEG UA UROBILINIOGEN DIPSTICK (test code=URO) NEGATIVE mg/dL NEG UA NITRITE DIPSTICK (test code=JONNIE) NEG NEG UA LEUKOCYTE ESTERASE DIPSTICK (test code=LEUU) NEG NEG UA WBC (test code=WBCU) 0-2 #/hpf NONE SEEN UA RBC (test code=RBCU) 0-2 #/hpf NONE SEEN UA EPITHELIAL CELLS (test code=EPIU) RARE #/HPF RARE-FEW UA BACTERIA (test code=BACU) NEGATIVE /HPF RARE-FEW UA MUCUS (test code=MUCU) RARE NONE SEEN Indication for culture: Flank Pain Dysuria/FrequencyHGB [id number] 06:10:00* Test Item Value Reference Range Comments HEMOGLOBIN (test code=HGB) 12.5 g/dL 10.7-13.9 HEMATOCRIT (test code=HCT) 37.8 % 32.1-42.1 CHEMISTRY 7 [id number] 14:45:00* Test Item Value Reference Range Comments SODIUM (test code=NA) 140 mEq/L 135-145 POTASSIUM (test code=K) 4.2 mEq/L 3.5-5.0 CHLORIDE (test code=CL) 104 mEq/L 100-115 CARBON DIOXIDE (test code=CO2) 29 mEq/L 22-31 ANION GAP (test code=GAP) 11.60 10-20 GLUCOSE (test code=GLU) 131 mg/dL 65-110 BLOOD UREA NITROGEN (test code=BUN) 8 mg/dL 7-18 GLOMERULAR FILTRATION RATE (test code=GFR) 135 ml/min >60 CREATININE (test code=CREAT) 0.5 mg/dL 0.5-1.0 CALCIUM (test code=CA) 8.7 mg/dL 8.4-10.2 HCG SERUM [id number] 14:45:00* Test Item Value Reference Range Comments HCG SERUM QUAL (test code=HCGQL) NEGATIVE CHEMISTRY 7 [id number] 14:40:00* Test Item Value Reference Range Comments SODIUM (test code=NA) mEq/L 135-145 POTASSIUM (test code=K) mEq/L 3.5-5.0 CHLORIDE (test code=CL) mEq/L 100-115 CARBON DIOXIDE (test code=CO2) mEq/L 22-31 ANION GAP (test code=GAP) 10-20 GLUCOSE (test code=GLU) mg/dL 65-110 BLOOD UREA NITROGEN (test code=BUN) mg/dL 7-18 CREATININE (test code=CREAT) mg/dL 0.5-1.0 CALCIUM (test code=CA) mg/dL 8.4-10.2 HCG SERUM [id number] 14:40:00* Test Item Value Reference Range Comments HCG SERUM QUAL (test code=HCGQL) NEGATIVE CBC W/AUTO [id number] 14:20:00* Test Item Value Reference Range Comments WHITE BLOOD CELL (test code=WBC) 9.1 K/mm3 6.6-12.1 RED BLOOD CELL (test code=RBC) 4.45 M/mm3 3.45-5.01 HEMOGLOBIN (test code=HGB) 12.5 g/dL 10.7-13.9 HEMATOCRIT (test code=HCT) 38.8 % 32.1-42.1 MEAN CELL VOLUME (test code=MCV) 87 fL 84.1-94.8 MEAN CELL HGB (test code=MCH) 28.1 pg 27-35 MEAN CELL HGB CONCETRATION (test code=MCHC) 32.2 gm/dL 32.2-34.1 RED CELL DISTRIBUTION WIDTH (test code=RDW) 14.3 % 12.4-16.5 PLATELET COUNT (test code=PLT) 357 K/mm3 133-385 IMMATURE PLATELET FRACTION (test code=IPF) 0.0 % 0.0-10.8 MEAN PLATELET VOLUME (test code=MPV) 10.0 fl 9.1-12.7 NEUTROPHIL % (test code=NT%) 67.2 % 56.5-79.4 LYMPHOCYTE % (test code=LY%) 28.5 % 14.3-34.3 MONOCYTE % (test code=MO%) 2.5 % 5.1-10.4 EOSINOPHIL % (test code=EO%) 1.1 % 0.1-3.0 BASOPHIL % (test code=BA%) 0.4 % 0.1-1.0 NEUTROPHIL # (test code=NT#) 6.1 K/mm3 LYMPHOCYTE # (test code=LY#) 2.6 K/mm3 MONOCYTE # (test code=MO#) 0.2 K/mm3 EOSINOPHIL # (test code=EO#) 0.10 K/mm3 BASOPHIL # (test code=BA#) 0.0 K/mm3 RBC MORPHOLOGY REQUIRED (test code=RBCM) NORMAL NORMAL PLATELET MORPHOLOGY REQUIRED (test code=PLTMR) NORMAL NORMAL CT ABDOMEN/PELVIS [id number] 11:24:00 [place] [address] Patient Name: BETTY BRIZUELA MR #: [id number] : 1975 Age/Sex: 43/F Req #: [id number] Adm Physician: Ordered by: SANCHEZ TALBOT GUEST SERVICE MANAGER Report #: [id number] Location: ER Room/Bed: Procedure: [id number] CT/CT ABDOMEN/PELVIS WO Exam Date: 01/12/19 Exam Time: 11 00 REPORT STATUS: Signed EXAMINA TION: CT of the abdomen and pelvis without contrast. TECHNIQUE: Spiral CT images of the abdomen and pelvis were performed from the lung bases to the les ser trochanters. No intravenous contrast was given per renal stone protocol. Coronal and sagittal reformatted images were obtained. COMPARISON: None. CLINICAL HISTORY:Bilateral flank pain x2 weeks DISCUSSION: ABSENCE OF INTRAVENOUS CONTRAST DECREASES SENSITIVITY FOR DETECTION OF FOCAL LESIONS AND VASCULAR PATHOLOGY. ABDOMEN/PELVIS: LOWER THORAX: Unremarkable. HEPATOBILIARY:Hepatic parenchyma is diffusely hypoattenuating compatible with steatosis with regional sparing along the gallbladder fossa. No intrahepatic biliary dilatation. Gallbladder is unremarkable. SPLEEN: No splenomegaly. PANCREAS: No focal masses or ductal dilatation. ADRENALS: No adrenal nodules. KIDNEYS/URETERS: No renal or ureteral calculi. No hydronephrosis. No gross mass lesion. PELVIC ORGANS/BLADDER: The urinary bladder is unr emarkable. The uterus is enlarged and neutral in position with an intrauterine device in place, displaced to the right.. Left ovarian dominant follicle. No adnexal mass. PERITONEUM/RETROPERITONEUM: No ascites. No pneumoperitoneum. LYMPH NODES: No pelvic sidewall, retroperitoneal, or mesenteric lymphaden opathy. VESSELS: Limited evaluation without intravenous contrast. The abdom inal aorta is nonaneurysmal. GI TRACT: The large bowel shows no evidence of distention or wall thickening. Scattered sigmoid diverticula without adjace nt inflammatory change. The appendix is normal. No small bowel dilatation to s uggest obstruction. BONES AND SOFT TISSUES: Probable postsurgical changes o f the anterior abdominal wall subcutaneous fat. Very small fat-containing umbi lical hernia. No osseous destructive lesions. IMPRESSION: No acute intra-abdominal or pelvic CT abnormalities. No urolithiasis. Incidental not e of hepatomegaly with hepatic steatosis. Sigmoid diverticulosis without fi ndings of diverticulitis. Bulky uterus with rightward displacement of intr auterine device, likely secondary to leiomyoma(s). Nonemergent transvaginal pe lvic ultrasound may be of benefit for further evaluation. Signed by: Dr. Cece Vang M.D. on 01/12/2019 11:33 AM Dictated By: CECE VANG MD 1133 Transcribed By: ALONSO FORD on 01/12/19 1133 COPY TO: SANCHEZ TALBOT NP
[2019-05-17] MEDS ORDERED: ACETAMINOPHEN 1000 MG/100 ML IV PRN (17:15)
[2019-05-17] MEDS: METRONIDAZOLE 500MG/NS 100ML 100 ML IV SCH (17:55)
[2019-05-17] MEDS: PANTOPRAZOLE 40 MG 10ML VIAL IV SCH (17:55)
[2019-05-17] MEDS: LACTATED RINGER'S 1,000 ML IV SCH (17:55)
[2019-05-17] MEDS: HYDROMORPHONE 1MG/1ML INJ IV PRN ×2 (18:02→23:00)
[2019-05-17 18:03] VITALS: BP 126/65
[2019-05-17 18:07] VITALS: BP 126/65
[2019-05-17] MEDS ORDERED: CEFTRIAXONE SOD 2 GM/NS 100 ML 100 ML IV SCH (18:30)
[2019-05-17] MEDS ORDERED: DIATRIZOATE MEGL/DIATRIZOA SOD 30 ML BTL PO ONE (18:57)
[2019-05-17] MEDS: ONDANSETRON HCL INJ 2MG/ML 2ML 2 MG/ML VIAL IV PRN (19:30)
[2019-05-17 19:32] LABS: BILIRUBIN,URINE SMALL (NEGATIVE); CLARITY,URINE CLEAR (CLEAR); COLOR,URINE YELLOW (YELLOW); KETONES,URINE NEGATIVE (NEGATIVE); LEUKOCYTE ESTERASE ,URINE NEGATIVE (NEGATIVE); NITRITE,URINE NEGATIVE (NEGATIVE); PROTEIN,URINE DIPSTICK NEGATIVE (NEGATIVE); URINE UROBILINOGEN 0.2 mg/dL (0.2 - 1)
[2019-05-17 20:05] LABS: BACTERIA,URINE RARE /HPF; RBC,URINE 0-5 /HPF (0-5)
[2019-05-17 20:09] VITALS: BP 123/60
[2019-05-17 20:57] LABS: BASOPHILS % 0.3 % (0.0-1.0); EOSINOPHILS % 0.3 % (0.0-6.0); HEMATOCRIT 36.4 % (34.2-44.1); HEMOGLOBIN 12.6 g/dL (12.0-16.0); LYMPHOCYTES # (AUTO) 2.1 (1.0-3.2); LYMPHOCYTES % 13.9 % (18.0-39.1); MEAN CORPUSCULAR HEMOGLOBIN 29.6 pg (28-32); MEAN CORPUSCULAR HGB CONC 34.6 g/dL (31-35); MEAN CORPUSCULAR VOLUME 85.6 fL (81-99); MONOCYTES # (AUTO) 0.5 (0.2-0.8); MONOCYTES % 3.6 % (4.4-11.3); NEUTROPHILS # (AUTO) 12.1 (2.1-6.9); NEUTROPHILS % 81.3 % (38.7-80.0); PLATELET COUNT 381 x10e3/uL (140-360); RED BLOOD COUNT 4.25 x10e6/uL (3.6-5.1); RED CELL DISTRIBUTION WIDTH 14.2 % (11.7-14.4)
[2019-05-17 20:58] LABS: BLOOD UREA NITROGEN 9 mg/dL (8-26); BUN/CREATININE RATIO 23 (6-25); CREATININE, SERUM 0.4 mg/dL (0.6-1.1); EST GLOMERULAR FILTRATION RATE > 60 ML/MIN (60-)
[2019-05-17 21:17] LABS: ALANINE AMINOTRANSFERASE 83 IU/L (0-55); ALBUMIN 3.6 g/dL (3.5-5.0); ALBUMIN/GLOBULIN RATIO 1.2 (0.8-2.0); ALKALINE PHOSPHATASE 54 IU/L (40-150); ANION GAP 13.4 mmol/L (8-16); CALCIUM 9.4 mg/dL (8.4-10.2); CARBON DIOXIDE 28 mmol/L (22-29); CHLORIDE 100 mmol/L (98-107); GLUCOSE 129 mg/dL (74-118); POTASSIUM 4.4 mmol/L (3.5-5.1); SODIUM 137 mmol/L (136-145)
[2019-05-17] MEDS ORDERED: SODIUM CHLORIDE 0.9% 50ML 50 ML ONE (21:50)
[2019-05-17] MEDS ORDERED: IOPAMIDOL 370 MG/ML 200 ML INFUS..BTL INJ ONE (21:50)
--- NOTE | 2019-05-17 21:57 | Diagnostic Imaging Report ---
EXAM: CT Abdomen and Pelvis WITH contrast INDICATION: ^ABDOMINAL PAIN AND ABNORMAL HIDA SCAN/ORAL AND IV CONTRAST ^[id number] ^[id number] COMPARISON: CT dated 01/12/2019 TECHNIQUE: Abdomen and pelvis were scanned utilizing a multidetector helical scanner from the lung base to the pubic symphysis after administration of IV contrast. Coronal and sagittal reformations were obtained. Dose modulation, iterative reconstruction, and/or weight based adjustment of the mA/kV was utilized to reduce the radiation dose to as low as reasonably achievable. Routine protocol was performed. Scan was performed when during portal venous phase. IV CONTRAST: 100 mL of Isovue-370 ORAL CONTRAST: Gastroview COMPLICATIONS: None RADIATION DOSE: Total DLP: 396.44 mGy*cm Estimated effective dose: (DLP x 0.015 x size factor) mSv CTDIvol has been reviewed. It is below the limits set by the Radiation Protocol Committee (RPC). FINDINGS: LINES and TUBES: None. LOWER THORAX: Mild bibasilar atelectasis. HEPATOBILIARY: Hepatic steatosis. No focal hepatic lesions. No biliary ductal dilation. GALLBLADDER: No radio-opaque stones or sludge. No wall thickening. SPLEEN: No splenomegaly. PANCREAS: No focal masses or ductal dilatation. ADRENALS: No adrenal nodules KIDNEYS/URETERS: Kidneys enhance symmetrically. No hydronephrosis. No cystic or solid mass lesions. No stones. GI TRACT: No abnormal distention, wall thickening, or evidence of bowel obstruction. Appendix is normal. PELVIC ORGANS/BLADDER: Unremarkable. Hysterectomy. LYMPH NODES: No lymphadenopathy. VESSELS: Unremarkable. PERITONEUM / RETROPERITONEUM: No free air. Trace pelvic free fluid, likely physiologic. BONES: Unremarkable. SOFT TISSUES: Mild subcutaneous fat stranding of the mid to lower abdomen and back, unchanged. IMPRESSION: 1. No acute inflammatory process in the abdomen/pelvis. 2. Gallbladder appears unremarkable by CT criteria. 3. Hepatic steatosis. Signed by: Dr. Blu Ravi MD on 05/17/2019 9:53 PM
--- NOTE | 2019-05-17 21:57 | Diagnostic Imaging Report ---
EXAMINATION: CHEST 2 VIEWS INDICATION: ^PAIN ^[id number] ^[id number] COMPARISON: None FINDINGS: PA and lateral views TUBES and LINES: None. LUNGS: Lungs are well inflated. There is no evidence of pneumonia or pulmonary edema. PLEURA: No pleural effusion or pneumothorax. HEART AND MEDIASTINUM: The cardiomediastinal silhouette is unremarkable. BONES AND SOFT TISSUES: No acute osseous lesion. Soft tissues are unremarkable. UPPER ABDOMEN: No free air under the diaphragm. IMPRESSION: No acute thoracic abnormality. Signed by: Dr. Blu Ravi MD on 05/17/2019 9:53 PM
[2019-05-17] MEDS ORDERED: PROMETHAZINE 25MG/ NS 50ML (IV) IV PRN (23:00)
[2019-05-18] VITALS (10 sets, daily range): BP systolic 109–133; BP diastolic 53–71
[2019-05-18] MEDS: LACTATED RINGER'S 1,000 ML IV SCH ×2 (00:36→05:01)
[2019-05-18] MEDS: METRONIDAZOLE 500MG/NS 100ML 100 ML IV SCH (01:20)
--- NOTE | 2019-05-18 07:09 | NUR ---
REPORT GIVEN TO ONCOMING NURSE.WALKING ROUNDS MADE.PT RESTING IN BED WITH NO S/S OF DISTRESS.
--- NOTE | 2019-05-18 07:46 | NUR ---
Dr Mesfin Garcia in patient room talked to patient regarding procedure, patient signed consent, NPO, No in any distress
[2019-05-18] MEDS: PANTOPRAZOLE 40 MG 10ML VIAL IV SCH (08:02)
--- NOTE | 2019-05-18 08:16 | NUR ---
patient off the unit for procedure, AAOx3, Due antibiotic flagyl sent with patient
[2019-05-18] MEDS ORDERED: HYDROGEN PEROXIDE 120 ML BTL ONE (08:53)
[2019-05-18] MEDS ORDERED: BUPIVACAINE 0.25%/EPI 30ML SDV INJ ONE (08:53)
[2019-05-18] MEDS ORDERED: HYDROMORPHONE 1MG/1ML INJ ONE (09:36)
[2019-05-18] MEDS ORDERED: ACETAMINOPHEN 1000 MG/100 ML 100 ML IV ONE (09:36)
[2019-05-18] MEDS ORDERED: FENTANYL CITRATE/PF 100MCG/2 ML INJ ONE ×2 (11:24→14:51)
--- NOTE | 2019-05-18 11:42 | NUR ---
Recvd patient from PACU, Alert , sleepy, arousal with voice, 4 trochar site is intact
[2019-05-18] MEDS: HYDROMORPHONE 1MG/1ML INJ IV PRN ×3 (12:55→19:52)
[2019-05-18] MEDS: ONDANSETRON HCL INJ 2MG/ML 2ML 2 MG/ML VIAL IV PRN ×3 (12:55→19:47)
[2019-05-18] MEDS ORDERED: MIDAZOLAM HCL 2 MG/2 ML VIAL ONE (14:51)
[2019-05-18] MEDS: D5.45%NS/KCL 20MEQ 1,000 ML IV SCH (16:13)
[2019-05-18] MEDS ORDERED: GLYCOPYRROLATE INJ 1MG/ 5 ML SYR ONE (18:31)
[2019-05-18] MEDS ORDERED: ROCURONIUM BROMIDE 10 MG/ML 5ML VIAL ONE (18:31)
[2019-05-18] MEDS ORDERED: SEVOFLURANE INHAL SOLN 250 ML PEN BTL ONE (18:31)
[2019-05-18] MEDS ORDERED: LIDOCAINE HCL 2% LOCAL INJ 5 ML SDV VIAL INJ ONE (18:31)
[2019-05-18] MEDS ORDERED: METOCLOPRAMIDE HCL 10 MG/2ML VIAL ONE (18:31)
[2019-05-18] MEDS ORDERED: SUCCINYLCHOLINE 200 MG/10 ML SYR ONE (18:31)
[2019-05-18] MEDS ORDERED: DEXAMETHASONE SOD PHOS INJ 4 MG/ML VIAL ONE (18:31)
[2019-05-18] MEDS ORDERED: ONDANSETRON HCL INJ 2MG/ML 2ML 2 MG/ML VIAL ONE (18:31)
[2019-05-18] MEDS ORDERED: PROPOFOL IV EMULSION 10 MG/ML 20 ML VIAL ONE (18:31)
[2019-05-18] MEDS ORDERED: KETOROLAC TROMETHAMINE 30 MG/ML VIAL ONE (18:31)
[2019-05-18] MEDS ORDERED: NEOSTIGMINE 5 MG/5ML SYR ONE (18:31)
--- NOTE | 2019-05-18 18:50 | NUR ---
RECEIVED REPORT FROM PREVIOUS NURSE. FAMILY AT BEDSIDE. CALL LIGHT WITHIN REACH. PATIENT IN BED.
[2019-05-18] MEDS ORDERED: KETOROLAC TROMETHAMINE 10 MG TAB PO PRN (21:30)
--- NOTE | 2019-05-18 21:32 | NUR ---
PATIENT COMPLAINING OF PAIN AN HOUR AND HALF AFTER GIVEN PAIN MEDICATION. CALLED AND TALKED TO DR. Mesfin COSBY ABOUT PATIENT WANTING STRONGER PAIN MEDICATION. DR. Mesfin COSBY ORDERED TORADOL 30 MG Q6H AND HYDROCODONE 7.5 MG Q4.
[2019-05-18] MEDS: HYDROCODONE/APAP 7.5MG-325MG 1 EA TAB PO PRN (21:55)
[2019-05-19] VITALS: BP 105/59
[2019-05-19] MEDS: HYDROMORPHONE 1MG/1ML INJ IV PRN (00:22)
[2019-05-19] MEDS: D5.45%NS/KCL 20MEQ 1,000 ML IV SCH ×2 (02:22→06:43)
[2019-05-19] MEDS: KETOROLAC TROMETHAMINE 30 MG/ML VIAL IV PRN ×2 (02:28→07:27)
[2019-05-19 04:00] VITALS: BP 120/57
[2019-05-19 06:08] LABS: BASOPHILS # (AUTO) 0.1 (0.0-0.1); BASOPHILS % 0.4 % (0.0-1.0); EOSINOPHILS % 0.2 % (0.0-6.0); HEMATOCRIT 31.5 % (34.2-44.1); HEMOGLOBIN 10.6 g/dL (12.0-16.0); LYMPHOCYTES # (AUTO) 2.8 (1.0-3.2); LYMPHOCYTES % 21.5 % (18.0-39.1); MEAN CORPUSCULAR HEMOGLOBIN 29.2 pg (28-32); MEAN CORPUSCULAR HGB CONC 33.7 g/dL (31-35); MEAN CORPUSCULAR VOLUME 86.8 fL (81-99); MONOCYTES # (AUTO) 0.6 (0.2-0.8); MONOCYTES % 4.5 % (4.4-11.3); NEUTROPHILS # (AUTO) 9.4 (2.1-6.9); NEUTROPHILS % 72.9 % (38.7-80.0); PLATELET COUNT 332 x10e3/uL (140-360); RED BLOOD COUNT 3.63 x10e6/uL (3.6-5.1); RED CELL DISTRIBUTION WIDTH 14.4 % (11.7-14.4)
--- NOTE | 2019-05-19 07:06 | NUR ---
Gave report to oncoming nurse. Call light within reach. Patient in bed. at bedside
[2019-05-19] MEDS: PANTOPRAZOLE 40 MG 10ML VIAL IV SCH (08:28)
[2019-05-19 08:32] VITALS: BP 120/57
[2019-05-19 08:38] VITALS: BP 112/52
--- NOTE | 2019-05-19 09:30 | NUR ---
Dr. Garcia is here making rounds. He examined patient and plans to dc today after patient receives full liquid diet.
[2019-05-19] MEDS: HYDROCODONE/APAP 7.5MG-325MG 1 EA TAB PO PRN (11:01)
[2019-05-19] MEDS: ONDANSETRON HCL INJ 2MG/ML 2ML 2 MG/ML VIAL IV PRN (11:08)
[2019-05-19] MEDS ORDERED: TYLENOL WITH C1 EACH PO (11:14)
[2019-05-19 12:00] VITALS: BP 119/60
--- NOTE | 2019-05-19 13:20 | NUR ---
Discharge instructions and prescription were given to the patient. She verbalized understanding. She understands to f/u with Dr. Garcia next week. IV was removed from the right wrist with tip intact.
--- NOTE | 2019-05-24 11:25 | Operative Report ---
DATE OF PROCEDURE: 05/18/2019 SURGEON: Ashvin Garcia MD PREOPERATIVE DIAGNOSES: Biliary dyskinesia, possible acalculous cholecystitis. POSTOPERATIVE DIAGNOSIS: Biliary dyskinesia. PROCEDURE PERFORMED: Laparoscopic cholecystectomy. ANESTHESIA: General. ESTIMATED BLOOD LOSS: Minimal. DRAINS: None. COMPLICATIONS: None. INDICATION AND FINDINGS: A 44-year-old female admitted complaining of severe right upper quadrant pain for several days, progressively getting worse, associated with nausea, but no vomiting. She had HIDA scan that revealed normal visualization of gallbladder. Ultrasound revealed no stones. Her white count was normal. Liver chemistries were normal. Urinalysis was negative. INTRAOPERATIVE FINDINGS: Grossly normal-looking gallbladder, somewhat distended without any edema or inflammatory changes. There was no ductal dilatation. There was no evidence of any liver masses. The liver shows changes consistent with hepatic liver infiltration. The patient had undergone recent hysterectomy. There was no inflammatory changes that were visible in the rest of the abdomen. There was no purulent fluid in the abdomen or pelvis. DESCRIPTION OF PROCEDURE: With the patient lying on the operative table in the supine position and after administration of general anesthesia, she was prepped and draped for laparoscopic appendectomy. The procedure was begun by establishing pneumoperitoneum in the umbilical site because of the previous laparoscopic hysterectomy and then pneumoperitoneum was insufflated to 15 mm of pressure in that location. Under direct vision with the camera, we placed a 15 mm umbilical trocar and then finally two lateral working ports in the right upper quadrant, midclavicular line, and right anterior axillary line. The patient rotated to the left in the reverse Trendelenburg position and then the gallbladder was grasped through the lateral working ports and the dissection was begun in the hepatoduodenal ligament and in the neck of the gallbladder high where we identified the cystic duct and the junction with the common bile duct was seen. We continued the dissection until we identified the cystic artery going into the gallbladder bed fossa and part of the liver plate. At that point, we transected the cystic duct three times distally, once proximally and the cystic artery twice distally, once proximally with titanium clips and then transected both structures. The dissection was continued in the gallbladder bed fossa using a combination of electrocautery, traction, and counter traction until we detached the gallbladder. The gallbladder was then retrieved. The gallbladder contained no palpable abnormalities. We inspected the operative field. There was some oozing coming from the liver bed fossa, but no active arterial bleeding or major venous blood was seen. The minor oozing was cauterized. We placed Surgicel in the gallbladder bed fossa. At this point, then we inspected the operative field, the right lower quadrant, the pelvis, and removed all the fluid and then we went ahead and released the pneumoperitoneum and closed the wound using 0-Vicryl for the umbilical fascia and 3-0 Vicryl for the subcutaneous tissue in that location as well as the subxiphoid port and the skin of all the ports was closed using albert. 0.25% Marcaine with epinephrine was used as local block at the end of the case. The patient tolerated the procedure well, taken to recovery room in stable condition. MD HONORIO Rueda/LUCI /[id number]
== END 2019-05-19 13:35 | disposition home or self-care (01) ==
LOC: INTOOBSV 16:46 → MED/SURG 16:46
PROVIDERS: ADMIT Surgery; ATTEND Surgery
DX: K81.0 Acute cholecystitis (principal); K82.8 Other specified diseases of gallbladder; K76.0 Fatty (change of) liver, not elsewhere classified
CPT/HCPCS: 36415 ×2; 47562; 71046; 74177; 80053; 81001; 85025 ×2; 87086; 88304; C9113 ×3; G0378 ×3; J0131; J0696 ×2; J1100; J1170 ×3; J1885 ×2; J2001; J2250; J2405 ×3; J2704; J2765; J3010; J3490; J7121 ×2; Q9967

== ENCOUNTER → 2020-07-02 | Outpatient (CLI) | payer BC ==
--- NOTE | 2020-07-02 09:34 | Diagnostic Imaging Report ---
EXAM: Complete Abdominal Ultrasound INDICATION: Elevated liver enzymes ^ELEVATED LIVER ENZYMES COMPARISON: CT scan 05/17/2019. Ultrasound 05/16/2019. TECHNIQUE: Transverse and longitudinal images of the upper abdomen were obtained. FINDINGS: Liver: Size: 16.5 cm in the right midclavicular line, normal Appearance: Increased echogenicity, smooth contour Mass: No focal masses Spleen: Size: 10.3 cm in length, normal Echogenicity: Normal Mass: No focal masses Gallbladder: Prior cholecystectomy Sonographic Falk's Sign: Negative Bile Ducts: Intrahepatic Ducts: No dilatation Extrahepatic Ducts: Common bile duct measures 0.4 cm, no dilatation Pancreas: Visualized portions of the pancreatic head, neck and proximal body are normal. Kidneys: Length: Right 12.9 cm Left 11.6 cm Echogenicity: Normal Collecting System: No hydronephrosis Stone: 0.3 cm nonobstructing stone in the mid right kidney. Cyst/Mass: None Vessels: Aorta: Visualized portions are normal Inferior Vena Cava: Visualized portions are normal Main Portal Vein: 1.2 cm, normal size with hepatopetal flow. Free Fluid: No ascites or pleural effusion IMPRESSION: Increased hepatic echogenicity could be due to fatty infiltration. 0.3 cm nonobstructing stone in the mid right kidney. Signed by: Dr. Cristi Galeas M.D. on 07/02/2020 9:30 AM
== END ==
LOC: US 08:32
PROVIDERS: ATTEND Family Medicine
DX: R74.8 Abnormal levels of other serum enzymes (principal)
CPT/HCPCS: 76700